=== PATIENT | male | born 1940 | race Two or more races ===

== ENCOUNTER 2018-07-26 06:00 | Day surgery (SDC) | payer OTHER | END 2018-07-26 10:40 | disposition home or self-care (01) | LOC: AMB-ENDOS 06:00 | DX: D12.0 Benign neoplasm of cecum (principal); D12.3 Benign neoplasm of transverse colon; K57.30 Diverticulosis of large intestine without perforation or abscess without bleeding ==

== ENCOUNTER 2018-12-27 08:06 | Inpatient (IN) | payer OTHER ==
[~2018-12-27] VITALS: Ht 167.6 cm; Wt 90.7 kg
[~2018-12-27 08:06] MED LIST: ASPIR 8181 MG PO; FORTAMET1000 MG PO; GABAPENT PO; LOSART PO; ZOCOR PO
[2018-12-28] MEDS ORDERED: LOSARTAN POTASS25 MG PO (08:11)
[2018-12-28] MEDS ORDERED: NEURONTIN800 MG PO (08:11)
[2018-12-28] MEDS ORDERED: SIMVASTATIN40 MG PO (08:13)
== END 2019-01-05 10:21 | DRG 331 ==
LOC: O/R 12-28 06:00 → SURH 12-28 06:00 → SURG 12-28 08:45 → SURH 12-28 11:15 → SURG 12-28 14:50 → SURH 12-29 10:51
PROVIDERS: ADMIT Colon & Rectal Surgery
PROC: 07TB4ZZ Resection of Mesenteric Lymphatic, Percutaneous Endoscopic Approach (ICD-10-PCS; 2018-12-28)
PROC: 4A033R1 Measurement of Arterial Saturation, Peripheral, Percutaneous Approach (ICD-10-PCS; 2018-12-28)
PROC: 4A12X4Z Monitoring of Cardiac Electrical Activity, External Approach (ICD-10-PCS; 2018-12-28)
PROC: 0DTF4ZZ Resection of Right Large Intestine, Percutaneous Endoscopic Approach (ICD-10-PCS; principal; 2018-12-28 08:45)
DX: D12.0 Benign neoplasm of cecum (principal); D12.3 Benign neoplasm of transverse colon; K57.30 Diverticulosis of large intestine without perforation or abscess without bleeding; I13.10 Hypertensive heart and chronic kidney disease without heart failure, with stage 1 through stage 4 chronic kidney disease, or unspecified chronic kidney disease; N18.2 Chronic kidney disease, stage 2 (mild); G47.33 Obstructive sleep apnea (adult) (pediatric); E78.00 Pure hypercholesterolemia, unspecified